=== PATIENT | female | born 1950 | race Caucasian/White ===

== ENCOUNTER 2016-10-08 11:18 | Emergency (ER) | payer MEDICARE, OTHER ==
[~2016-10-08] VITALS: Wt 89.1 kg
[~2016-10-08 11:18] MED LIST: ASPI-650 PO; Glucophage; JANUVIA; SIMVASTATIN; VIC PO; [UNRECOGNIZED DRUG - REMARK]
[2016-10-08] MEDS ORDERED: KETOROLAC 30 MG INJ IM STA (12:08)
[2016-10-08 12:41] LABS: ADD SCAN DIFF NO
[2016-10-08 12:48] LABS: BASOPHIL # 0.1 10^3/ul (0.0-0.1); BASOPHILS % 0.5 % (0.0-2.0); EOSINOPHILS # 0.1 10^3/ul (0.0-0.5); EOSINOPHILS % 0.6 % (0.0-7.0); HEMATOCRIT 42.1 % (37.0-47.0); LYMPHOCYTES # 2.4 10^3/ul (0.8-2.9); LYMPHOCYTES % 19.1 % (15.0-51.0); MEAN CORPUSCULAR HEMOGLOBIN 29.4 pg (29.0-33.0); MEAN CORPUSCULAR HGB CONC 33.3 g/dl (32.0-37.0); MEAN CORPUSCULAR VOLUME 88.4 fl (82.0-101.0); MEAN PLATELET VOLUME 9.3 fl (7.4-10.4); MONOCYTE # 1.2 10^3/ul (0.3-0.9); MONOCYTES % 9.2 % (0.0-11.0); NEUTROPHIL # 8.9 10^3/ul (1.6-7.5); NEUTROPHILS % 70.2 % (39.0-77.0); PLATELET COUNT 307 10^3/UL (140-415); RED BLOOD COUNT 4.76 10^6/ul (4.20-5.40); RED CELL DISTRIBUTION WIDTH 13.3 % (11.5-14.5); WHITE BLOOD COUNT 12.7 10^3/ul (4.8-10.8)
--- NOTE | 2016-10-08 12:54 | RADRPT ---
PROCEDURE: US Lower extremity Venous. CLINICAL INDICATION: Right leg pain TECHNIQUE: Multiple sonographic images of the right lower extremity deep venous system was obtaine d utilizing grayscale, color-flow, compressive sonography and doppler imaging with augmentation. Th e images were reviewed on a PACS workstation. COMPARISON: None. FINDINGS: There is normal compressibility and flow within the right common femoral, femoral, posterior tibial, peroneal and popliteal veins. RPTAT: AA IMPRESSION: No sonographic evidence for deep venous thrombosis. .Felix Stone MD, MD Date Time Electronically viewed and signed by .Felix Stone MD, MD on 10/08/2016 12:54 .S/
--- NOTE | 2016-10-08 13:03 | ERD ---
ER Documentation Chief Complaint Date/Time DATE: 10/08/16 TIME: 13:01 Chief Complaint r. knee pain, denies trauma HPI Patient is a 66-year-old female who presents to the ED with sudden onset of right knee pain 4 days. She states that she developed the knee pain without triggering factors or trauma or injury. She states that she went to her primary care who stated that she should come to the ER. She states that in the last 4 days the pain has gotten progressively worse and she has difficulty walking and bending her knee. She denies fever or chills. She denies pain above or below her knee joint. She denies chest pain, cough, shortness of breath or difficulty breathing. She denies history of knee pain or gout. She is not taking any medication for symptoms. No other complaints. ROS All systems reviewed and are negative except as per history of present illness. Medications Home Meds Active Scripts Acetaminophen* (Tylophen*) 500 Mg Capsule, 1 CAP PO Q6H Y for PAIN AND OR ELEVATED TEMP, #20 CAP Prov:FINN MATOS PA-C 10/08/16 Indomethacin* (Indocin*) 25 Mg Capsule, 25 MG PO Q8 for 30 Days, CAP Prov:FINN MATOS PA-C 10/08/16 Colchicine* (Colcrys*) 0.6 Mg Tablet, 0.6 MG PO BID for 2 Days, TAB Prov:FINN MATOS PA-C 10/08/16 Reported Medications [Other Meds Unknown] No Conflict Check 08/26/12 Aspirin (Aspirin) 81 Mg Tablet, 81 MG PO DAILY 08/26/12 [Simvastatin] No Conflict Check 08/26/12 [Januvia] No Conflict Check 08/26/12 Acetaminophen/Hydrocodone (Vicodin) 1 Tab Tab, 1 TAB PO PRN 08/26/12 [Glucophage] No Conflict Check 08/26/12 Allergies Allergies: Coded Allergies: No Known Allergy (Unverified , 08/26/12) PMhx/Soc History of Surgery: Yes (ABD SURGERY UNSURE OF PROCEDURE) Anesthesia Reaction: No Hx Neurological Disorder: No Hx Respiratory Disorders: No Hx Cardiac Disorders: Yes (HTN) Hx Psychiatric Problems: No Hx Miscellaneous Medical Probl: Yes (HTN, DM TYPE II) Hx Alcohol Use: No Hx Substance Use: No Hx Tobacco Use: No Smoking Status: Never smoker FmHx Family History: No coronary disease, No diabetes, No other Physical Exam Vitals Vital Signs Date Time Temp Pulse Resp B/P Pulse Ox O2 Delivery O2 Flow Rate FiO2 10/08/16 11:26 100.2 86 20 119/61 99 Physical Exam GENERAL: Well-developed, well-nourished female. Appears in no acute distress. HEAD: Normocephalic, atraumatic. EYES: Pupils are equally reactive bilaterally. EOMs grossly intact. No conjunctival erythema. ENT: Moist mucous membranes. No uvula deviation. No kissing tonsils. No exudates. NECK: Supple. No lymphadenopathy or thyromegaly. No meningismus. negative kernig. negative brudinski. LUNG: Clear to auscultation bilaterally. No rhonchi, wheezing, rales or coarse breath sounds. HEART: Regular rate and rhythm. No murmurs, rubs or gallops. Extremities: Equal pulses bilaterally. No peripheral clubbing, cyanosis or edema. No unilateral leg swelling. Warmth with no erythema to the right knee with tenderness to the anterior knee and medial aspect of knee. Difficult with bending. No pain above or below the knee. No drainage. No open wounds or laceration. No step-offs or deformities. Negative Homans sign. Pulses intact. NEUROLOGIC: Alert and oriented. Moving all four extremities. 5/5 strength in all extremities. Normal speech. unSteady gait. SKIN: Normal color. Warm and dry. No rashes or lesions. Capillary refill < 2 seconds Result Diagram: 10/08/16 1223 Results 24 hrs Laboratory Tests Test 10/08/16 12:23 White Blood Count 12.710^3/ul Red Blood Count 4.7610^6/ul Hemoglobin 14.0g/dl Hematocrit 42.1% Mean Corpuscular Volume 88.4fl Mean Corpuscular Hemoglobin 29.4pg Mean Corpuscular Hemoglobin Concent 33.3g/dl Red Cell Distribution Width 13.3% Platelet Count 73835^3/UL Mean Platelet Volume 9.3fl Neutrophils % 70.2% Lymphocytes % 19.1% Monocytes % 9.2% Eosinophils % 0.6% Basophils % 0.5% Nucleated Red Blood Cells % 0.0/100WBC Neutrophils # 8.910^3/ul Lymphocytes # 2.410^3/ul Monocytes # 1.210^3/ul Eosinophils # 0.110^3/ul Basophils # 0.110^3/ul Nucleated Red Blood Cells # 0.010^3/ul Erythrocyte Sedimentation Rate 38mm/Hr Uric Acid 10.5mg/dl C-Reactive Protein 3.3mg/dl Current Medications Medications (Trade) Dose Ordered Sig/Dariana Route PRN Reason Start Time Stop Time Status Last Admin Dose Admin Ketorolac Tromethamine (Toradol) 30 mg ONCE STAT IM 10/08/16 12:08 10/08/16 12:11 DC 10/08/16 12:35 Procedures/MDM ER COURSE: I kept the patient and/or family informed of laboratory and diagnostic imaging results throughout the emergency room course. IMAGING STUDIES [place] [address] Radiology Main Line: [phone] DIAGNOSTIC IMAGING REPORT Patient: ALEJANDRA SNYDER : 1950 Age: 66 Sex: F MR #: [id number] DOS: 10/08/16 1208 Ordering MD: FINN MATOS PA-C Location: [facility] Room/Bed: PROCEDURE: US Lower extremity Venous. CLINICAL INDICATION: Right leg pain TECHNIQUE: Multiple sonographic images of the right lower extremity deep venous system was obtained utilizing grayscale, color-flow, compressive sonography and doppler imaging with augmentation. The images were reviewed on a PACS workstation. COMPARISON: None. FINDINGS: There is normal compressibility and flow within the right common femoral, femoral, posterior tibial, peroneal and popliteal veins. RPTAT: AA IMPRESSION: No sonographic evidence for deep venous thrombosis. .Felix Stone MD, Date Time Electronically viewed and signed by .Felix Stone MD, on 10/08/2016 12: 54 .S/ CC: FINN MATOS PA-C [place] [address] Radiology Main Line: [phone] DIAGNOSTIC IMAGING REPORT Patient: ALEAJNDRA SNYDER : 1950 Age: 66 Sex: F [id number] DOS: 10/08/16 1208 Ordering MD: FINN MATOS PA-C Location: [facility] Room/Bed: PROCEDURE: Right knee radiographs. CLINICAL INDICATION: Right knee pain. TECHNIQUE: Three views. Weight bearing. Frontal, lateral, and patellar view. COMPARISON: No prior studies are available for comparison. FINDINGS: There is no fracture or dislocation. There is a joint effusion. There are degenerative changes with osteophytes arising from all 3 joint compartment margins. There is medial joint compartment narrowing. There is no lytic or blastic lesion. There is no radiopaque foreign body. IMPRESSION: 1. Joint effusion. 2. Moderate degenerative change. 3. Otherwise normal images of the right knee. RPTAT: QQ .Joseph Correa MD, MD Date Time Electronically viewed and signed by .Joseph Correa MD, MD on 10/08/2016 13:24 .R/ CC: FINN MATOS PA-C CBC 12.7, uric acid 10.5. CRP 3.3. ESR 38 MEDICAL DECISION MAKING: This is a 66-year-old female who presents with right knee pain. Vital signs were reviewed. Patient is afebrile. Patient is not hypoxic. I consulted with Dr. Flowers regarding this patient who came to examine patient at bedside. Patient has what is likely gout due to the increase in uric acid. I have low suspicion for septic joint however patient should have close follow-up and be monitored closely and to return in 12 hours for recheck. Or earlier for any worsening symptoms such as fever, increasing pain or redness. X-ray and ultrasound is read by radiologist unremarkable. Low suspicion for dislocation, fracture, septic joint, compartment syndrome, osteomyelitis, avascular necrosis , DVT, Achilles tendon rupture, cellulitis. At this time, unable to rule out any tendon and ligament injuries. No pain above or below the knee. DISCHARGE: At this time, patient is stable for discharge and outpatient management with no new complaints during the ER course. Patient was sent home with colchicine for 2 days and indomethacin, Tylenol for pain. I advised patient to return in 12- 24 hours for recheck and to have close monitoring. Her to return earlier for any worsening symptoms such as fever, chills, increase in redness or swelling.. Patient will be discharged home with instructions to recheck for new or worsening symptoms such as fever, nausea, weakness, LOC and to follow up with primary care in the next 1-2 days. Patient was advised to return to the ER for any new or worsening symptoms. Plan was discussed and patient and/or family understands and agrees. Home instructions were given. Departure Diagnosis: Primary Impression: Knee pain Laterality: right Chronicity: acute Qualified Code: M25.561 - Acute pain of right knee Condition: Stable FINN MATOS PA-C Oct 08, 2016 13:03
[2016-10-08 13:08] LABS: URIC ACID 10.5 mg/dl (3.1-7.9)
[2016-10-08 13:11] LABS: C-REACTIVE PROTEIN 3.3 mg/dl (0.0-0.9)
--- NOTE | 2016-10-08 13:24 | RADRPT ---
PROCEDURE: Right knee radiographs. CLINICAL INDICATION: Right knee pain. TECHNIQUE: Three views. Weight bearing. Frontal, lateral, and patellar view. COMPARISON: No prior studies are available for comparison. FINDINGS: There is no fracture or dislocation. There is a joint effusion. There are degenerative changes with osteophytes arising from all 3 joint compartment margins. There is medial joint compartment narrowing. There is no lytic or blastic lesion. There is no radiopaque foreign body. IMPRESSION: 1. Joint effusion. 2. Moderate degenerative change. 3. Otherwise normal images of the right knee. RPTAT: QQ .Joseph Correa MD, Date Time Electronically viewed and signed by .Joseph Correa MD, on 10/08/2016 13:24 .R/
[2016-10-08] MEDS ORDERED: COLC0.6T6 PO (14:32)
[2016-10-08] MEDS ORDERED: ACET500C5 PO (14:32)
[2016-10-08] MEDS ORDERED: INDO25CA25 PO (14:32)
== END 2016-10-08 15:04 | disposition home or self-care (01) ==
LOC: FTE 11:18
DX: M25.561 Pain in right knee (principal); I10 Essential (primary) hypertension; E11.9 Type 2 diabetes mellitus without complications; Z79.82 Long term (current) use of aspirin; Z79.84 Long term (current) use of oral hypoglycemic drugs
CPT/HCPCS: 29505; 73562; 84560; 85025; 85651; 86140; 93971; J1885; 96372

== ENCOUNTER 2019-01-09 19:37 | Observation (INO) | payer MEDICARE, OTHER ==
[~2019-01-09] VITALS: Ht 160 cm; Wt 88.9 kg
[~2019-01-09 19:37] MED LIST changes: +ACET500C5 PO; +COLC0.6T6 PO; +INDO25CA16 PO
[2019-01-09 19:40] VITALS: Ht 160 cm; Wt 88.9 kg
[2019-01-09] MEDS ORDERED: morphine 4 MG/ML VIAL IV STA (19:53)
[2019-01-09] MEDS ORDERED: ONDANSETRON 4 MG INJ IV STA (19:53)
[2019-01-09] MEDS ORDERED: CEFTRIAXONE 1 GM/50 ML (PMX) 50 ML IVPB ONE (21:00)
[2019-01-09] MEDS ORDERED: ASPIRIN 325 MG TAB PO ONE (21:00)
--- NOTE | 2019-01-09 21:21 | ERD ---
ER Documentation Chief Complaint Chief Complaint SOB, LEFT SIDE HEAD/ SHOULDER PAIN X'S 2 DAYS HPI Patient is a 68-year-old female with hypertension and diabetes who presents with chest pain and shortness of breath. She also complains of bilateral headache. Her symptoms started 2 days ago and have been worsening. She tried Tylenol and Motrin. She has no fevers. Upon review of old medical records this is the patient's sixth visit to the ER since 2005. She does have a primary doctor. ROS All systems reviewed and are negative except as per history of present illness. Medications Home Meds Active Scripts Acetaminophen* (Tylophen*) 500 Mg Capsule, 1 CAP PO Q6H PRN for PAIN AND OR ELEVATED TEMP, #20 CAP Prov:FINN MATOS-C 10/08/16 Indomethacin* (Indocin*) 25 Mg Capsule, 25 MG PO Q8 for 30 Days, CAP Prov:FINN MATOS-C 10/08/16 Colchicine* (Colcrys*) 0.6 Mg Tablet, 0.6 MG PO BID for 2 Days, TAB Prov:FINN MATOS PA-C 10/08/16 Reported Medications [Other Meds Unknown] No Conflict Check 08/26/12 Aspirin (Aspirin) 81 Mg Tablet, 81 MG PO DAILY 08/26/12 [Simvastatin] No Conflict Check 08/26/12 [Januvia] No Conflict Check 08/26/12 Acetaminophen/Hydrocodone (Vicodin) 1 Tab Tab, 1 TAB PO PRN 08/26/12 [Glucophage] No Conflict Check 08/26/12 Allergies Allergies: Coded Allergies: No Known Allergy (Unverified , 08/26/12) PMhx/Soc History of Surgery: Yes (ABD SURGERY UNSURE OF PROCEDURE) Anesthesia Reaction: No Hx Neurological Disorder: No Hx Respiratory Disorders: No Hx Cardiac Disorders: Yes (HTN) Hx Psychiatric Problems: No Hx Miscellaneous Medical Probl: Yes (HTN, DM TYPE II) Hx Alcohol Use: No Hx Substance Use: No Hx Tobacco Use: No Smoking Status: Never smoker FmHx Family History: diabetes Physical Exam Vitals Vital Signs Date Temp Pulse Resp B/P (MAP) Pulse Ox O2 O2 Flow FiO2 Time Delivery Rate 01/09/19 80 18 161/91 100 Room Air 21:19 (114) 01/09/19 97.8 85 20 181/84 97 19:40 (116) Physical Exam Const: Moderate distress Head: Atraumatic Eyes: Normal Conjunctiva ENT: Normal External Ears, Nose and Mouth. Neck: Full range of motion. No meningismus. Resp: Clear to auscultation bilaterally Cardio: Regular rate and rhythm, no murmurs Abd: Soft, non tender, non distended. Normal bowel sounds Skin: No petechiae or rashes Back: No midline or flank tenderness Ext: No cyanosis, or edema Neur: Awake and alert Psych: Normal Mood and Affect Result Diagram: 01/09/19200401/09/192004 Results 24 hrs Laboratory Tests Test 01/09/19 19:50 01/09/19 20:05 Urine Color YELLOW Urine Clarity SLIGHTLY CLOUDY Urine pH 5.0 Urine Specific [place] 1.026 Urine Ketones TRACE mg/dL Urine Nitrite NEGATIVE mg/dL Urine Bilirubin NEGATIVE mg/dL Urine Urobilinogen NEGATIVE mg/dL Urine Leukocyte Esterase 2+ Aubrey/ul Urine Microscopic RBC 9 /HPF Urine Microscopic WBC 62 /HPF Urine Squamous Epithelial Cells FEW /HPF Urine Mucus FEW /HPF Urine Hemoglobin 2+ mg/dL Urine Glucose 1+ mg/dL Urine Total Protein 1+ mg/dl Urine Opiates Screen Positive Urine Barbiturates Negative Urine Amphetamines Screen Negative Urine Benzodiazepines Screen Negative Urine Cocaine Screen Negative Urine Cannabinoids Negative White Blood Count 15.3 10^3/ul Red Blood Count 4.77 10^6/ul Hemoglobin 13.6 g/dl Hematocrit 40.9 % Mean Corpuscular Volume 85.7 fl Mean Corpuscular Hemoglobin 28.5 pg Mean Corpuscular Hemoglobin Concent 33.3 g/dl Red Cell Distribution Width 12.8 % Platelet Count 506 10^3/UL Mean Platelet Volume 8.8 fl Immature Granulocytes % 0.700 % Neutrophils % 60.7 % Lymphocytes % 28.9 % Monocytes % 8.0 % Eosinophils % 1.0 % Basophils % 0.7 % Nucleated Red Blood Cells % 0.0 /100WBC Immature Granulocytes # 0.100 10^3/ul Neutrophils # 9.3 10^3/ul Lymphocytes # 4.4 10^3/ul Monocytes # 1.2 10^3/ul Eosinophils # 0.2 10^3/ul Basophils # 0.1 10^3/ul Nucleated Red Blood Cells # 0.0 10^3/ul Prothrombin Time 12.3 Sec Prothrombin Time Ratio 1.0 INR International Normalized Ratio 0.90 Activated Partial Thromboplast Time 30.0 Sec Sodium Level 140 mmol/L Potassium Level 4.6 mmol/L Chloride Level 106 mmol/L Carbon Dioxide Level 18 mmol/L Anion Gap 16 Blood Urea Nitrogen 14 mg/dl Creatinine 0.79 mg/dl Est Glomerular Filtrat Rate mL/min > 60 mL/min Glucose Level 217 mg/dl Hemoglobin A1c 5.6 % Calcium Level 11.1 mg/dl Troponin I < 0.012 ng/ml Triglycerides Level 191 mg/dl Cholesterol Level 129 mg/dl LDL Cholesterol, Calculated 47 mg/dl HDL Cholesterol 44 mg/dl Cholesterol/HDL Ratio 2.9 RATIO Current Medications Medications Dose Sig/Dariana Start Time Status Last (Trade) Ordered Route PRN Stop Time Admin Dose Reason Admin Morphine 4 mg ONCE STAT 01/09/19 DC 01/09/19 Sulfate IV 19:53 20:05 (morphine) 01/09/19 19:55 Ondansetron 4 mg ONCE STAT 01/09/19 DC 01/09/19 HCl (Zofran IV 19:53 20:05 Inj) 01/09/19 19:55 Ceftriaxone 50 ml @ ONCE ONCE 01/09/19 01/09/19 Sodium 100 mls/hr IVPB 21:00 21:13 01/09/19 21:29 Aspirin 325 mg ONCE ONCE 01/09/19 DC 01/09/19 (Aspirin) PO 21:00 21:13 01/09/19 21:01 Ondansetron 4 mg ER BRIDGE 01/09/19 HCl (Zofran PRN IV 21:30 Inj) NAUSEA/VOMITI 01/10/19 21:29 NG 650 mg ER BRIDGE 01/09/19 Acetaminophen PRN PO 21:30 (Tylenol .MILD PAIN 01/10/19 21:29 Tab) 1-3 OR TEMP Aspirin 81 mg DAILY PO 01/10/19 (Aspirin) 09:00 Sodium 1,000 ml @ [id number] IV 01/10/19 Chloride 70 mls/hr 00:00 IV Flush 3 ml PER 01/09/19 (NS 3 ml) PROTOCOL IV 21:30 Ondansetron 4 mg Q6H PRN 01/09/19 HCl (Zofran IV 21:30 Inj) NAUSEA/VOMITI NG 1 tab Q5M PRN 01/09/19 Nitroglycerin SL .CHEST 21:30 PAIN (Nitroglyceri n (Sl Tab) 0.4 Mg) 650 mg Q6H PRN 01/09/19 Acetaminophen PO .PAIN 1-3 21:30 (Tylenol OR TEMP Tab) Morphine 2 mg Q4H PRN 01/09/19 Sulfate IV .PAIN 21:30 (morphine) 7-10 Docusate 100 mg Q12H PRN 01/09/19 Sodium PO 21:30 (Colace) .CONSTIPATION Bisacodyl 5 mg DAILY PRN 01/09/19 (Dulcolax) PO 21:30 .CONSTIPATION Procedures/MDM CT brain read by radiology. Chest x-ray read by radiology. EKG read by me: Rate/Rhythm: Regular rate and rhythm at a normal rate Intervals: Normal Impression: No evidence of ischemia or arrhythmia Patient is a 60-year-old female presents with chest pain shortness of breath. Initial troponin is negative. I am concerned for possible acute coronary syndrome. I doubt pneumonia, pneumothorax, pulmonary embolism, or aortic dissection. CT head shows no sign of acute mass or bleed. The patient was gi gini morphine and Zofran as well as aspirin and nitroglycerin. She will be admitted to the care of Dr. Cope to a telemetry observation bed. She was found to have acute cystitis and subtraction was given and culture was done. Departure Diagnosis: Primary Impression: Chest pain Chest pain type: unspecified Qualified Codes: R07.9 - Chest pain, unspecified Additional Impressions: SOB (shortness of breath) Headache Headache type: unspecified Headache chronicity pattern: acute headache Intractability: not intractable Qualified Codes: R51 - Headache Cystitis Condition: RICHARD Adams MD Jan 09, 2019 21:21
[2019-01-09] MEDS ORDERED: NITROGLYCERIN (SL) 0.4 MG TAB SL PRN (21:30)
[2019-01-09] MEDS ORDERED: ACETAMINOPHEN 325 MG TAB PO PRN ×2 (21:30)
[2019-01-09] MEDS ORDERED: NACL 0.9% 3 ML SYG IV SCH (21:30)
[2019-01-09] MEDS ORDERED: ONDANSETRON 4 MG INJ IV PRN ×2 (21:30)
[2019-01-09] MEDS ORDERED: BISACODYL (EC) 5 MG TAB PO PRN (21:30)
[2019-01-09] MEDS ORDERED: DOCUSATE SODIUM 100 MG CAP PO PRN (21:30)
--- NOTE | 2019-01-09 22:46 | HP ---
Date/Time of Note Date/Time of Note DATE: 01/09/19 TIME: 22:45 Assessment/Plan VTE Prophylaxis SCD applied (from Nsg): Yes Pharmacological prophylaxis: NA/contraindicated Pharm contraindication: low risk/ambulating Lines/Catheters IV Catheter Type (from Nrsg): Saline Lock Assessment/Plan Hospital Course This is a 68-year-old female being admitted to the telemetry floor for: #1 chest pain: Rule out ACS versus secondary to uncontrolled hypertension. EKG appears nonischemic, will trend cardiac enzymes x3, the first that was negative. Will check an echocardiogram. Will check hemoglobin A1c, lipid panel, TSH. Will need to optimize patient's blood pressures. Will consult cardiology Dr godinez #2 uncontrolled hypertension: Patient did present with blood pressures in the 180s. This is likely contributing to patient's headache. Patient CT of the brain is negative. Patient is not able to provide dosages of her medications however there does not appear to be blood pressure medication listed. Will initiate the patient on lisinopril and Norvasc. PRN hydralazine. Titrate blood pressure medications as tolerated with a goal of systolic less than 130/80 given her history of diabetes. #3 headache: Likely secondary to uncontrolled hypertension. CT of the head is negative. Treat the blood pressure and pain meds. #4 diabetes mellitus: We will check hemoglobin A1c, insulin sliding scale, will hold oral meds at the current time and will need to confirm dosages as well. Check urine microalbumin. #5 metabolic acidosis: Possibly secondary to underlying urinary tract infection. Will treat urinary tract infection and monitor. If this persists we will obtain further work-up. She does not have any respiratory symptoms. #6 urinary tract infection: She was already given a dose of traction, will put her on ciprofloxacin twice daily for 3 days. #7 gout: Currently does not appear to have any gouty symptoms. #8 obesity: We will check hemoglobin A 1C, lipid panel, TSH, encourage diet and lifestyle modification. #9 hyperlipidemia: We will check lipid panel, continue statin confirm home dose. #10 DVT GI prophylaxis: SCDs, no GI prophylaxis indicated Further treatment strategy will be implemented as per the clinical course. Result Diagram: 01/09/19200401/09/192004 Results 24hrs Laboratory Tests Test 01/09/19 19:50 01/09/19 20:05 Urine Color YELLOW Urine Clarity SLIGHTLY CLOUDY A Urine pH 5.0 Urine Specific [place] 1.026 Urine Ketones TRACE A Urine Nitrite NEGATIVE Urine Bilirubin NEGATIVE Urine Urobilinogen NEGATIVE Urine Leukocyte Esterase 2+ H Urine Microscopic RBC 9 H Urine Microscopic WBC 62 H Urine Squamous Epithelial Cells FEW Urine Mucus FEW A Urine Hemoglobin 2+ H Urine Glucose 1+ H Urine Total Protein 1+ H Urine Opiates Screen Positive Urine Barbiturates Negative Urine Amphetamines Screen Negative Urine Benzodiazepines Screen Negative Urine Cocaine Screen Negative Urine Cannabinoids Negative White Blood Count 15.3 #H Red Blood Count 4.77 Hemoglobin 13.6 Hematocrit 40.9 Mean Corpuscular Volume 85.7 Mean Corpuscular Hemoglobin 28.5 L Mean Corpuscular Hemoglobin Concent 33.3 Red Cell Distribution Width 12.8 Platelet Count 506 #H Mean Platelet Volume 8.8 Immature Granulocytes % 0.700 H Neutrophils % 60.7 Lymphocytes % 28.9 Monocytes % 8.0 Eosinophils % 1.0 Basophils % 0.7 Nucleated Red Blood Cells % 0.0 Immature Granulocytes # 0.100 H Neutrophils # 9.3 H Lymphocytes # 4.4 H Monocytes # 1.2 H Eosinophils # 0.2 Basophils # 0.1 Nucleated Red Blood Cells # 0.0 Prothrombin Time 12.3 Prothrombin Time Ratio 1.0 INR International Normalized Ratio 0.90 Activated Partial Thromboplast Time 30.0 Sodium Level 140 Potassium Level 4.6 Chloride Level 106 Carbon Dioxide Level 18 L Anion Gap 16 H Blood Urea Nitrogen 14 Creatinine 0.79 Est Glomerular Filtrat Rate mL/min > 60 Glucose Level 217 Hemoglobin A1c 5.6 Calcium Level 11.1 H Troponin I < 0.012 Triglycerides Level 191 H Cholesterol Level 129 LDL Cholesterol, Calculated 47 HDL Cholesterol 44 Cholesterol/HDL Ratio 2.9 HPI/ROS Admit Date/Time Admit Date/Time Hx of Present Illness Complaint: Chest pain, shortness of breath, headache Patient is a poor historian. This is a 68-year-old female with a past medical history of hypertensionm, diabetes mellitus gout, hyperlipidemia who presented to the emergency department complaining of chest pain shortness of breath as well as right-sided headache. Patient complains of headache on the right side that is been going on for 2 days. She has tried Tylenol and Motrin but has not helped. She denies any fevers. She also reported chest pain along with shortness of breath. She does not seem to have medications for her blood pressure on her med recon. Allergies: NKDA Medications: Vicodin Glucophage Januvia Simvastatin Indomethacin Colchicine ROS Const: As per HPI Eyes : No pain discharge or redness or change in visual acuity ENT: No pain, sore throat, congestion, congestion, dysphagia or discharge Respiratory: No shortness of breath, cough, sputum, wheezing, or pleuritic pain Cardiovascular: As per HPI GI : no change in appetite, abdominal pain, nausea, vomiting, diarrhea, constipation, or change in the color his stool Genitourinary: No dysuria, hematuria, flank pain , discharge or CVA tenderness Musculoskeletal: No joint pain, back pain, neck pain, restricted range of motion in neck or joints Skin: No rash, bruising or hives Neuro: As per HPI Endocrine: No polyuria, polydipsia, temperature intolerance Psych: No hallucination, depression, anxiety or suicidal ideation PMH/Family/Social Past Medical History htn, gout, hyperlipidemia, diabetes Medications Current Medications Ondansetron HCl (Zofran Inj) 4 mg ER BRIDGE PRN IV NAUSEA/VOMITING; Start 01/09/19 at 21:30; Stop 01/10/19 at 21:29 Acetaminophen (Tylenol Tab) 650 mg ER BRIDGE PRN PO .MILD PAIN 1-3 OR TEMP; Start 01/09/19 at 21:30; Stop 01/10/19 at 21:29 Aspirin (Aspirin) 81 mg DAILY PO ; Start 01/10/19 at 09:00 Sodium Chloride 1,000 ml @ 70 mls/hr [id number] IV ; Start 01/10/19 at 00:00 IV Flush (NS 3 ml) 3 ml PER PROTOCOL IV ; Start 01/09/19 at 21:30 Ondansetron HCl (Zofran Inj) 4 mg Q6H PRN IV NAUSEA/VOMITING; Start 01/09/19 at 21:30 Nitroglycerin (Nitroglycerin (Sl Tab) 0.4 Mg) 1 tab Q5M PRN SL .CHEST PAIN; Start 01/09/19 at 21:30 Acetaminophen (Tylenol Tab) 650 mg Q6H PRN PO .PAIN 1-3 OR TEMP; Start 01/09/19 at 21:30 Morphine Sulfate (morphine) 2 mg Q4H PRN IV .PAIN 7-10; Start 01/09/19 at 21:30 Docusate Sodium (Colace) 100 mg Q12H PRN PO .CONSTIPATION; Start 01/09/19 at 21:30 Bisacodyl (Dulcolax) 5 mg DAILY PRN PO .CONSTIPATION; Start 01/09/19 at 21:30 Coded Allergies: No Known Allergy (Unverified , 08/26/12) Past Surgical History Abdominal hernia repair Family History Significant Family History: no pertinent family hx Social History Alcohol Use: none Smoking Status: Never smoker Drug Use: none Exam/Review of Systems Vital Signs Vitals Vital Signs Date Temp Pulse Resp B/P (MAP) Pulse Ox O2 O2 Flow FiO2 Time Delivery Rate 01/09/19 80 18 161/91 100 Room Air 21:19 (114) 01/09/19 97.8 19:40 Exam Exam General: Patient is currently lying in bed, she is complaining of a right-sided headache HEENT: Atraumatic, normocephalic. The pupils are equal, round and reactive. Extraocular motor are intact Neck: Supple with full range of motion. No rigidity or meningismus Chest: Nontender Lungs: Clear to auscultation bilaterally no crackles rales or wheezing Heart: Normal S1-S2, Regular rhythm and rate. Questionable murmur Abdomen: Soft , obese, nontender, nondistended , bowel sounds are present. No guarding no rebound tenderness , No masses or organomegaly. No costovertebral temporal angle mass Extremities: Normal to inspection, no edema no cyanosis Neurologic: Normal mental status, speech normal, cranial nerves II through XII are intact, motor and sensory are intact, Constitutional: alert Additional Comments EKG Rate/Rhythm: Regular rate and rhythm at a normal rate Intervals: Normal Impression: No evidence of ischemia or arrhythmia PROCEDURE: CT Brain without contrast. CLINICAL INDICATION: Bilateral headache for past 3 days worse today TECHNIQUE: A CT of the brain was performed on a [employer] 64-slice CT scanner utilizing axial imaging from the skull base through the vertex without IV contrast. Multiplanar reformatted images were made. Images were reviewed on a PACS workstation. The CTDIvol is 38.62 mGy and the DLP is 604.23 mGycm. One or more the following dose reduction techniques were utilized: Automated exposure control, adjustment of mA/ or kV according to patient's size, or use of iterative reconstruction technique. DICOM images are available for review. COMPARISON: None FINDINGS: There is no intracranial hemorrhage, mass effect, or midline shift. the ventricles and sulci are mildly prominent. The density of the brain is normal. There is good valenzuela-white matter differentiation throughout the cerebral hemispheres. The visualized brainstem and cerebellum are unremarkable. No extra-axial fluid collection is seen. The visualized paranasal sinuses and osseous structures are grossly unremarkable. IMPRESSION: No evidence of acute intracranial pathology. There is mild generalized volume loss. Findings were discussed with Dr. Torres of the emergency room department at 08:33 p.m. RPTAT:HAGL Brady Moya Physician Date Time Electronically viewed and signed by Physician Nelson on 01/09/2019 20:37 RL/ CC: RICHARD TORRES MD [id number] PROCEDURE: XR Chest. CLINICAL INDICATION: Chest pain TECHNIQUE: AP chest x-ray. COMPARISON: None. FINDINGS: The cardiomediastinal silhouette is unremarkable. focal linear density of the right mid lung is seen with elevation of the right hemidiaphragm. There is no pleural effusion or pneumothorax. multilevel spurs are seen along the thoracic spine. IMPRESSION: Focal right upper lobe atelectasis RPTAT:HAGL Brady Moya, Physician Date Time Electronically viewed and signed by Physician Nelson on 01/09/2019 20:37 RL/ CC: RICHARD TORRES MD [id number] SEBASTIAN BROWN Jan 09, 2019 22:45
[2019-01-10] VITALS (7 sets, daily range): BP systolic 132–189; BP diastolic 70–91; PULSE 79–101; RESP 17–18
[2019-01-10] MEDS ORDERED: SOD CHLORIDE 0.9% 1,000 ML IV SCH
[2019-01-10] MEDS: morphine 2 MG INJ IV PRN ×3 (02:51→18:13)
[2019-01-10] MEDS ORDERED: hydrALAzine 20 MG INJ IV PRN (05:00)
[2019-01-10] MEDS: INSULIN ASPART [NOVOLOG] 3 ML PEN SC SCH ×5 (05:00→21:45)
[2019-01-10] MEDS ORDERED: DEXTROSE 50% 50 ML SYRINGE IV PRN ×2 (05:30)
[2019-01-10] MEDS ORDERED: GLUCOSE GEL 15 GRAM TUBE BUCCAL PRN (05:30)
[2019-01-10] MEDS ORDERED: GLUCAGON 1 MG INJ IM PRN (05:30)
[2019-01-10] MEDS ORDERED: GLUCOSE GEL 15 GRAM TUBE PO PRN ×2 (05:30)
[2019-01-10] MEDS: AMLODIPINE 2.5 MG TAB PO SCH ×2 (06:14→08:37)
[2019-01-10] MEDS: LISINOPRIL 20 MG TAB PO SCH ×2 (06:14→08:36)
[2019-01-10] MEDS: CIPROFLOXACIN 250 MG TAB PO SCH ×2 (06:15→17:42)
[2019-01-10] MEDS ORDERED: HYDROCODONE/APAP (5/325) TAB PO ONE (06:30)
[2019-01-10] MEDS: ASPIRIN 81 MG TAB PO SCH (08:36)
--- NOTE | 2019-01-10 14:26 | PN ---
Date/Time of Note Date/Time of Note DATE: 01/10/19 TIME: 14:11 Assessment/Plan VTE Prophylaxis Risk score (from Ns)>0 risk: 2 SCD applied (from Ns): Yes Pharmacological prophylaxis: other Pharm contraindication: low risk/ambulating Lines/Catheters IV Catheter Type (from Nrsg): Saline Lock Assessment/Plan Assessment/Plan 1. Chest pain, negative troponin, follow up with Dr. Layne 2. DM, HbA1c 7.4, ISS, metformin, she was on januvia 100 mg daily at home 3. HTN, increase norvasc 4. Dyslipidemia, lipitor 5. Gout, stable 6. UTI, on cipro 7. Hypomagnesemia, Mg 8. Obesity, lose weight Result Diagram: 01/10/19 0649 01/10/19 0649 Results 24hrs Laboratory Tests Test 01/09/19 19:50 01/09/19 20:05 01/10/19 02:00 01/10/19 06:13 Urine Color YELLOW Urine Clarity SLIGHTLY CLOUDY A Urine pH 5.0 Urine Specific 1.026 [place] Urine Ketones TRACE A Urine Nitrite NEGATIVE Urine Bilirubin NEGATIVE Urine NEGATIVE Urobilinogen Urine Leukocyte 2+ H Esterase Urine Microscopic 9 H RBC Urine Microscopic 62 H WBC Urine Squamous FEW Epithelial Cells Urine Mucus FEW A Urine Hemoglobin 2+ H Urine Glucose 1+ H Urine Total 1+ H Protein Urine Opiates Positive Screen Urine Negative Barbiturates Urine Negative Amphetamines Screen Urine Negative Benzodiazepines Screen Urine Cocaine Negative Screen Urine Negative Cannabinoids White Blood Count 15.3 #H Red Blood Count 4.77 Hemoglobin 13.6 Hematocrit 40.9 Mean Corpuscular 85.7 Volume Mean Corpuscular 28.5 L Hemoglobin Mean Corpuscular 33.3 Hemoglobin Concen t Red Cell 12.8 Distribution Width Platelet Count 506 #H Mean Platelet 8.8 Volume Immature 0.700 H Granulocytes % Neutrophils % 60.7 Lymphocytes % 28.9 Monocytes % 8.0 Eosinophils % 1.0 Basophils % 0.7 Nucleated Red 0.0 Blood Cells % Immature 0.100 H Granulocytes # Neutrophils # 9.3 H Lymphocytes # 4.4 H Monocytes # 1.2 H Eosinophils # 0.2 Basophils # 0.1 Nucleated Red 0.0 Blood Cells # Prothrombin Time 12.3 Prothrombin Time 1.0 Ratio INR International 0.90 Normalized Ratio Activated 30.0 Partial Thrombopl ast Time Sodium Level 140 Potassium Level 4.6 Chloride Level 106 Carbon Dioxide 18 L Level Anion Gap 16 H Blood Urea 14 Nitrogen Creatinine 0.79 Est Glomerular > 60 Filtrat Rate mL/min Glucose Level 217 Hemoglobin A1c 5.6 Calcium Level 11.1 H Troponin I < 0.012 < 0.012 Triglycerides 191 H Level Cholesterol Level 129 LDL Cholesterol, 47 Calculated HDL Cholesterol 44 Cholesterol/HDL 2.9 Ratio Creatine Kinase 25 Creatine Kinase 1.2 Index Creatinine Kinase 0.29 MB (Mass) Bedside Glucose 191 Test 01/10/19 06:44 01/10/19 06:49 01/10/19 07:54 01/10/19 12:15 Creatine Kinase 24 Creatine Kinase 1.5 Index Creatinine Kinase 0.36 MB (Mass) Troponin I < 0.012 White Blood Count 13.0 H Red Blood Count 4.09 L Hemoglobin 11.7 L Hematocrit 34.9 L Mean Corpuscular 85.3 Volume Mean Corpuscular 28.6 L Hemoglobin Mean Corpuscular 33.5 Hemoglobin Concen t Red Cell 12.5 Distribution Width Platelet Count 372 # Mean Platelet 8.7 Volume Immature 0.600 H Granulocytes % Neutrophils % 72.2 Lymphocytes % 18.1 Monocytes % 7.8 Eosinophils % 0.7 Basophils % 0.6 Nucleated Red 0.0 Blood Cells % Immature 0.080 H Granulocytes # Neutrophils # 9.4 H Lymphocytes # 2.4 Monocytes # 1.0 H Eosinophils # 0.1 Basophils # 0.1 Nucleated Red 0.0 Blood Cells # Sodium Level 140 Potassium Level 4.7 Chloride Level 107 Carbon Dioxide 22 Level Anion Gap 11 Blood Urea 12 Nitrogen Creatinine 0.60 Est Glomerular > 60 Filtrat Rate mL/min Glucose Level 212 Hemoglobin A1c 7.4 H Calcium Level 10.2 Magnesium Level 1.2 L Total Bilirubin 0.5 Direct Bilirubin 0.00 Indirect 0.5 Bilirubin Aspartate Amino 18 Transf (AST/SGOT) Alanine 32 Aminotransferase (ALT/SGPT) Alkaline 56 Phosphatase Total Protein 6.5 Albumin 3.8 Globulin 2.70 Albumin/Globulin 1.40 Ratio Triglycerides 133 Level Cholesterol Level 108 LDL Cholesterol, 35 Calculated HDL Cholesterol 46 Cholesterol/HDL 2.3 Ratio Thyroid 1.590 Stimulating Hormone (TSH) Parathyroid 39.4 Hormone (Intact) Bedside Glucose 202 169 Subjective 24 Hr Interval Summary Free Text/Dictation no chest pain today Exam/Review of Systems Exam Vitals Vital Signs Date Temp Pulse Resp B/P (MAP) Pulse Ox O2 O2 Flow FiO2 Time Delivery Rate 01/10/19 97.7 79 18 179/76 96 11:16 (110) 01/10/19 Room Air 04:20 Intake and Output 01/09/19 01/09/19 01/10/19 1515:00 23:00 07:00 IntakeIntake Total 50 ml BalanceBalance 50 ml Constitutional: alert, oriented, well developed, obese Psych: no complaints, nl mood/affect Head: normocephalic, atraumatic Eyes: nl conjunctiva, EOMI, nl lids ENMT: nl external ears & nose, nl lips & teeth, nl nasal mucosa & septum Neck: supple, non-tender Respiratory: clear to auscultation, normal air movement; No congested cough, No crackles/rales, No diminished breath sounds, No intercostal retraction, No labored breathing, No respirations, No tactile fremitus, No wheezing, No other Cardiovascular: regular rate and rhythm, nl pulses; No bruits, No diastolic murmur, No edema, No gallop, No irregular rhythm, No jugular venous distention (JVD), No murmurs/extra sounds, No rub, No systolic murmur, No S3, No S4, No other Gastrointestinal: soft, nl liver, spleen, non-tender Musculoskeletal: nl extremities to inspection Extremities: normal pulses; No calf tenderness, No cyanosis, No clubbing, No edema, No pitting pedal edema, No palpable cord, No tenderness, No other Neurological: HANDYMAN II-XII intact, nl mental status, nl speech, nl strength Skin: nl turgor Results Results 24hrs Laboratory Tests Test 01/09/19 19:50 01/09/19 20:05 01/10/19 02:00 01/10/19 06:13 Urine Color YELLOW Urine Clarity SLIGHTLY CLOUDY A Urine pH 5.0 Urine Specific 1.026 [place] Urine Ketones TRACE A Urine Nitrite NEGATIVE Urine Bilirubin NEGATIVE Urine NEGATIVE Urobilinogen Urine Leukocyte 2+ H Esterase Urine Microscopic 9 H RBC Urine Microscopic 62 H WBC Urine Squamous FEW Epithelial Cells Urine Mucus FEW A Urine Hemoglobin 2+ H Urine Glucose 1+ H Urine Total 1+ H Protein Urine Opiates Positive Screen Urine Negative Barbiturates Urine Negative Amphetamines Screen Urine Negative Benzodiazepines Screen Urine Cocaine Negative Screen Urine Negative Cannabinoids White Blood Count 15.3 #H Red Blood Count 4.77 Hemoglobin 13.6 Hematocrit 40.9 Mean Corpuscular 85.7 Volume Mean Corpuscular 28.5 L Hemoglobin Mean Corpuscular 33.3 Hemoglobin Concen t Red Cell 12.8 Distribution Width Platelet Count 506 #H Mean Platelet 8.8 Volume Immature 0.700 H Granulocytes % Neutrophils % 60.7 Lymphocytes % 28.9 Monocytes % 8.0 Eosinophils % 1.0 Basophils % 0.7 Nucleated Red 0.0 Blood Cells % Immature 0.100 H Granulocytes # Neutrophils # 9.3 H Lymphocytes # 4.4 H Monocytes # 1.2 H Eosinophils # 0.2 Basophils # 0.1 Nucleated Red 0.0 Blood Cells # Prothrombin Time 12.3 Prothrombin Time 1.0 Ratio INR International 0.90 Normalized Ratio Activated 30.0 Partial Thrombopl ast Time Sodium Level 140 Potassium Level 4.6 Chloride Level 106 Carbon Dioxide 18 L Level Anion Gap 16 H Blood Urea 14 Nitrogen Creatinine 0.79 Est Glomerular > 60 Filtrat Rate mL/min Glucose Level 217 Hemoglobin A1c 5.6 Calcium Level 11.1 H Troponin I < 0.012 < 0.012 Triglycerides 191 H Level Cholesterol Level 129 LDL Cholesterol, 47 Calculated HDL Cholesterol 44 Cholesterol/HDL 2.9 Ratio Creatine Kinase 25 Creatine Kinase 1.2 Index Creatinine Kinase 0.29 MB (Mass) Bedside Glucose 191 Test 01/10/19 06:44 01/10/19 06:49 01/10/19 07:54 01/10/19 12:15 Creatine Kinase 24 Creatine Kinase 1.5 Index Creatinine Kinase 0.36 MB (Mass) Troponin I < 0.012 White Blood Count 13.0 H Red Blood Count 4.09 L Hemoglobin 11.7 L Hematocrit 34.9 L Mean Corpuscular 85.3 Volume Mean Corpuscular 28.6 L Hemoglobin Mean Corpuscular 33.5 Hemoglobin Concen t Red Cell 12.5 Distribution Width Platelet Count 372 # Mean Platelet 8.7 Volume Immature 0.600 H Granulocytes % Neutrophils % 72.2 Lymphocytes % 18.1 Monocytes % 7.8 Eosinophils % 0.7 Basophils % 0.6 Nucleated Red 0.0 Blood Cells % Immature 0.080 H Granulocytes # Neutrophils # 9.4 H Lymphocytes # 2.4 Monocytes # 1.0 H Eosinophils # 0.1 Basophils # 0.1 Nucleated Red 0.0 Blood Cells # Sodium Level 140 Potassium Level 4.7 Chloride Level 107 Carbon Dioxide 22 Level Anion Gap 11 Blood Urea 12 Nitrogen Creatinine 0.60 Est Glomerular > 60 Filtrat Rate mL/min Glucose Level 212 Hemoglobin A1c 7.4 H Calcium Level 10.2 Magnesium Level 1.2 L Total Bilirubin 0.5 Direct Bilirubin 0.00 Indirect 0.5 Bilirubin Aspartate Amino 18 Transf (AST/SGOT) Alanine 32 Aminotransferase (ALT/SGPT) Alkaline 56 Phosphatase Total Protein 6.5 Albumin 3.8 Globulin 2.70 Albumin/Globulin 1.40 Ratio Triglycerides 133 Level Cholesterol Level 108 LDL Cholesterol, 35 Calculated HDL Cholesterol 46 Cholesterol/HDL 2.3 Ratio Thyroid 1.590 Stimulating Hormone (TSH) Parathyroid 39.4 Hormone (Intact) Bedside Glucose 202 169 Medications Medication Current Medications Aspirin (Aspirin) 81 mg DAILY PO Last administered on 01/10/19at 08:36; Admin D ose 81 MG; Start 01/10/19 at 09:00 Sodium Chloride 1,000 ml @ 70 mls/hr [id number] IV Last administered on 01/10/19at 01:58; Admin Dose 70 MLS/HR; Start 01/10/19 at 00:00 IV Flush (NS 3 ml) 3 ml PER PROTOCOL IV ; Start 01/09/19 at 21:30 Ondansetron HCl (Zofran Inj) 4 mg Q6H PRN IV NAUSEA/VOMITING; Start 01/09/19 at 21:30 Nitroglycerin (Nitroglycerin (Sl Tab) 0.4 Mg) 1 tab Q5M PRN SL .CHEST PAIN; Start 01/09/19 at 21:30 Acetaminophen (Tylenol Tab) 650 mg Q6H PRN PO .PAIN 1-3 OR TEMP; Start 01/09/19 at 21:30 Morphine Sulfate (morphine) 2 mg Q4H PRN IV .PAIN 7-10 Last administered on 01/10/19at 11:31; Admin Dose 2 MG; Start 01/09/19 at 21:30 Docusate Sodium (Colace) 100 mg Q12H PRN PO .CONSTIPATION; Start 01/09/19 at 21:30 Bisacodyl (Dulcolax) 5 mg DAILY PRN PO .CONSTIPATION; Start 01/09/19 at 21:30 Ciprofloxacin (Cipro) 250 mg BID@06,18 PO Last administered on 01/10/19at 06:15; Admin Dose 250 MG; Start 01/10/19 at 06:00; Stop 01/13/19 at 05:59 Lisinopril (Zestril) 20 mg DAILY PO Last administered on 01/10/19at 08:36; Admin Dose 20 MG; Start 01/10/19 at 05:00 Amlodipine Besylate (Norvasc) 2.5 mg DAILY PO Last administered on 01/10/19at 08:37; Admin Dose 2.5 MG; Start 01/10/19 at 05:00 Hydralazine HCl (Apresoline) 10 mg Q4H PRN IV ELEVATED BLOOD PRESSURE; Start 01/10/19 at 05:00 Diagnostic Test (Pha) (Accu-Chek) 1 ea 02 XX ; Start 01/11/19 at 02:00 Insulin Aspart (Novolog Insulin Pen) NOVOLOG *MILD* ALGORI... Q4 SC Last administered on 01/10/19at 12:22; Admin Dose 1 UNIT; Start 01/10/19 at 05:00 Miscellaneous Information 1 ea NOTE XX ; Start 01/10/19 at 05:30 Glucose (Glutose) 15 gm Q15M PRN PO DECREASED GLUCOSE; Start 01/10/19 at 05:30 Glucose (Glutose) 22.5 gm Q15M PRN PO DECREASED GLUCOSE; Start 01/10/19 at 05:30 Dextrose (D50w Syringe) 25 ml Q15M PRN IV DECREASED GLUCOSE; Start 01/10/19 at 05:30 Dextrose (D50w Syringe) 50 ml Q15M PRN IV DECREASED GLUCOSE; Start 01/10/19 at 05:30 Glucagon (Glucagen) 1 mg Q15M PRN IM DECREASED GLUCOSE; Start 01/10/19 at 05:30 Glucose (Glutose) 15 gm Q15M PRN BUCCAL DECREASED GLUCOSE; Start 01/10/19 at 05:30 ZEV SORTO MD Jan 10, 2019 14:23
--- NOTE | 2019-01-10 17:33 | CONS ---
Assessment/Plan Assessment/Plan Hospital Course (Demo Recall) 1. Chest pain appears to be atypical but given her multiple risk factors we will schedule for less stress test once blood pressure is better controlled to rule out any significant ischemia 2. Hypertension poorly controlled. Patient said at home she takes benazepril and metoprolol. Lisinopril and Norvasc was added. I will also change her metoprolol to carvedilol and continue with the Norvasc and lisinopril for now 3. Diabetes: On insulin for now 4. Dyslipidemia on a statin. Check lipid panels 5. Headache: We will defer to primary team Thank you for this referral. We will continue follow-up with you ARTEM FONSECA MD [facility] Consultation Date/Type/Reason Admit Date/Time Date of Consultation: Jan 10, 2019 Type of Consult Cardiology Reason for Consultation cp Requesting Provider: SEBASTIAN BROWN Date/Time of Note DATE: 01/10/19 TIME: 17:23 Hx of Present Illness Interventional cardiology consultation note Chief complaint: Headache Reason for consult: Chest pain History of present illness: Thank you for this referral. History was informed the patient was a poor historian discussion with the staff and physicians review of the chart. This is a pleasant 68-year-old [place] female with history of diabetes hypertension dyslipidemia who presented emergency room mostly with complaint of severe headache. Chest was noted to be severely hypertensive blood pressures been around 180s. He denies any left-sided chest pain or pressure to me now but however says she has occasional chest pain last week was a few days ago in fact. Pain is moderate to moderate in the chest and nonexertional. Sharp. Left- sided. She continues to have diffuse headache though. She is severe now She also complains of foot pain Allergies: No known drug allergies Medications were reviewed as per medical reconciliation sheet Family history: No early coronary artery disease Social history: Non-smoker. Past medical history: Diabetes hypertension dyslipidemia obesity gout Review of system: Patient denies all others except for above-mentioned Past Medical History Home Meds Active Scripts Acetaminophen* (Tylophen*) 500 Mg Capsule, 1 CAP PO Q6H PRN for PAIN AND OR ELEVATED TEMP, #20 CAP Prov:FINN MATOS PA-C 10/08/16 Indomethacin* (Indocin*) 25 Mg Capsule, 25 MG PO Q8 for 30 Days, CAP Prov:SHOOSHTARIAN,TANNAZ PA-C 10/08/16 Colchicine* (Colcrys*) 0.6 Mg Tablet, 0.6 MG PO BID for 2 Days, TAB Prov:FINN MATOS PA-C 10/08/16 Reported Medications [Other Meds Unknown] No Conflict Check 08/26/12 Aspirin (Aspirin) 81 Mg Tablet, 81 MG PO DAILY 08/26/12 [Simvastatin] No Conflict Check 08/26/12 [Januvia] No Conflict Check 08/26/12 Acetaminophen/Hydrocodone (Vicodin) 1 Tab Tab, 1 TAB PO PRN 08/26/12 [Glucophage] No Conflict Check 08/26/12 Medications Current Medications Aspirin (Aspirin) 81 mg DAILY PO Last administered on 01/10/19at 08:36; Admin Dose 81 MG; Start 01/10/19 at 09:00 IV Flush (NS 3 ml) 3 ml PER PROTOCOL IV ; Start 01/09/19 at 21:30 Ondansetron HCl (Zofran Inj) 4 mg Q6H PRN IV NAUSEA/VOMITING; Start 01/09/19 at 21:30 Nitroglycerin (Nitroglycerin (Sl Tab) 0.4 Mg) 1 tab Q5M PRN SL .CHEST PAIN; Start 01/09/19 at 21:30 Acetaminophen (Tylenol Tab) 650 mg Q6H PRN PO .PAIN 1-3 OR TEMP; Start 01/09/19 at 21:30 Morphine Sulfate (morphine) 2 mg Q4H PRN IV .PAIN 7-10 Last administered on 01/10/19at 11:31; Admin Dose 2 MG; Start 01/09/19 at 21:30 Docusate Sodium (Colace) 100 mg Q12H PRN PO .CONSTIPATION; Start 01/09/19 at 21:30 Bisacodyl (Dulcolax) 5 mg DAILY PRN PO .CONSTIPATION; Start 01/09/19 at 21:30 Ciprofloxacin (Cipro) 250 mg BID@,18 PO Last administered on 01/10/19at 06:15; Admin Dose 250 MG; Start 01/10/19 at 06:00; Stop 01/13/19 at 05:59 Lisinopril (Zestril) 20 mg DAILY PO Last administered on 01/10/19at 08:36; Admin Dose 20 MG; Start 01/10/19 at 05:00 Hydralazine HCl (Apresoline) 10 mg Q4H PRN IV ELEVATED BLOOD PRESSURE; Start 01/10/19 at 05:00 Diagnostic Test (Pha) (Accu-Chek) 1 ea 02 XX ; Start 01/11/19 at 02:00 Insulin Aspart (Novolog Insulin Pen) NOVOLOG *MILD* ALGORI... Q4 SC Last administered on 01/10/19at 12:22; Admin Dose 1 UNIT; Start 01/10/19 at 05:00 Miscellaneous Information 1 ea NOTE XX ; Start 01/10/19 at 05:30 Glucose (Glutose) 15 gm Q15M PRN PO DECREASED GLUCOSE; Start 01/10/19 at 05:30 Glucose (Glutose) 22.5 gm Q15M PRN PO DECREASED GLUCOSE; Start 01/10/19 at 05:30 Dextrose (D50w Syringe) 25 ml Q15M PRN IV DECREASED GLUCOSE; Start 01/10/19 at 05:30 Dextrose (D50w Syringe) 50 ml Q15M PRN IV DECREASED GLUCOSE; Start 01/10/19 at 05:30 Glucagon (Glucagen) 1 mg Q15M PRN IM DECREASED GLUCOSE; Start 01/10/19 at 05:30 Glucose (Glutose) 15 gm Q15M PRN BUCCAL DECREASED GLUCOSE; Start 01/10/19 at 05:30 Amlodipine Besylate (Norvasc) 10 mg DAILY PO ; Start 01/11/19 at 09:00 Atorvastatin Calcium (Lipitor) 10 mg HS PO ; Start 01/10/19 at 21:00 Metformin HCl (Glucophage) 1,000 mg BID WITH MEALS PO ; Start 01/10/19 at 17:55 Allergies: Coded Allergies: No Known Allergy (Unverified , 08/26/12) Social History Alcohol Use: none Smoking Status: Never smoker Drug Use: none Exam/Review of Systems Vital Signs Vitals Vital Signs Date Temp Pulse Resp B/P (MAP) Pulse Ox O2 O2 Flow FiO2 Time Delivery Rate 01/10/19 97.9 91 17 174/90 97 15:21 (118) 01/10/19 Room Air 04:20 Intake and Output 01/09/19 01/09/19 01/10/19 1515:00 23:00 07:00 IntakeIntake Total 50 ml BalanceBalance 50 ml Exam Exam General: Obese female in no acute distress HEENT: NC/AT. pupils are equal. round. NECK: NO JVD. no stridor. CV: RRR. systolic murmur; no gallop or rubs. PULM: no wheezing or rhonchi. GI: SOFT, NT, ND, no rebound or guarding Extremity: trace B/L LE edema. no clubbing. neuro: awake and alert, OX3. Psych: calm and pleasant rectal: deferred EKG was personally showed normal sinus rhythm with poor R wave progression Head CT done in the emergency room shows: No evidence of acute intracranial pathology. There is mild generalized volume loss. Chest x-ray showed: Focal right upper lobe atelectasis Labs Result Diagram: 01/10/19 0649 01/10/19 0649 Results 24hrs Laboratory Tests Test 01/09/19 19:50 01/09/19 20:05 01/10/19 02:00 01/10/19 06:13 Urine Color YELLOW Urine Clarity SLIGHTLY CLOUDY A Urine pH 5.0 Urine Specific 1.026 [place] Urine Ketones TRACE A Urine Nitrite NEGATIVE Urine Bilirubin NEGATIVE Urine NEGATIVE Urobilinogen Urine Leukocyte 2+ H Esterase Urine Microscopic 9 H RBC Urine Microscopic 62 H WBC Urine Squamous FEW Epithelial Cells Urine Mucus FEW A Urine Hemoglobin 2+ H Urine Glucose 1+ H Urine Total 1+ H Protein Urine Opiates Positive Screen Urine Negative Barbiturates Urine Negative Amphetamines Screen Urine Negative Benzodiazepines Screen Urine Cocaine Negative Screen Urine Negative Cannabinoids White Blood Count 15.3 #H Red Blood Count 4.77 Hemoglobin 13.6 Hematocrit 40.9 Mean Corpuscular 85.7 Volume Mean Corpuscular 28.5 L Hemoglobin Mean Corpuscular 33.3 Hemoglobin Concen t Red Cell 12.8 Distribution Width Platelet Count 506 #H Mean Platelet 8.8 Volume Immature 0.700 H Granulocytes % Neutrophils % 60.7 Lymphocytes % 28.9 Monocytes % 8.0 Eosinophils % 1.0 Basophils % 0.7 Nucleated Red 0.0 Blood Cells % Immature 0.100 H Granulocytes # Neutrophils # 9.3 H Lymphocytes # 4.4 H Monocytes # 1.2 H Eosinophils # 0.2 Basophils # 0.1 Nucleated Red 0.0 Blood Cells # Prothrombin Time 12.3 Prothrombin Time 1.0 Ratio INR International 0.90 Normalized Ratio Activated 30.0 Partial Thrombopl ast Time Sodium Level 140 Potassium Level 4.6 Chloride Level 106 Carbon Dioxide 18 L Level Anion Gap 16 H Blood Urea 14 Nitrogen Creatinine 0.79 Est Glomerular > 60 Filtrat Rate mL/min Glucose Level 217 Hemoglobin A1c 5.6 Calcium Level 11.1 H Troponin I < 0.012 < 0.012 Triglycerides 191 H Level Cholesterol Level 129 LDL Cholesterol, 47 Calculated HDL Cholesterol 44 Cholesterol/HDL 2.9 Ratio Creatine Kinase 25 Creatine Kinase 1.2 Index Creatinine Kinase 0.29 MB (Mass) Bedside Glucose 191 Test 01/10/19 06:44 01/10/19 06:49 01/10/19 07:54 01/10/19 12:15 Creatine Kinase 24 Creatine Kinase 1.5 Index Creatinine Kinase 0.36 MB (Mass) Troponin I < 0.012 White Blood Count 13.0 H Red Blood Count 4.09 L Hemoglobin 11.7 L Hematocrit 34.9 L Mean Corpuscular 85.3 Volume Mean Corpuscular 28.6 L Hemoglobin Mean Corpuscular 33.5 Hemoglobin Concen t Red Cell 12.5 Distribution Width Platelet Count 372 # Mean Platelet 8.7 Volume Immature 0.600 H Granulocytes % Neutrophils % 72.2 Lymphocytes % 18.1 Monocytes % 7.8 Eosinophils % 0.7 Basophils % 0.6 Nucleated Red 0.0 Blood Cells % Immature 0.080 H Granulocytes # Neutrophils # 9.4 H Lymphocytes # 2.4 Monocytes # 1.0 H Eosinophils # 0.1 Basophils # 0.1 Nucleated Red 0.0 Blood Cells # Sodium Level 140 Potassium Level 4.7 Chloride Level 107 Carbon Dioxide 22 Level Anion Gap 11 Blood Urea 12 Nitrogen Creatinine 0.60 Est Glomerular > 60 Filtrat Rate mL/min Glucose Level 212 Hemoglobin A1c 7.4 H Calcium Level 10.2 Magnesium Level 1.2 L Total Bilirubin 0.5 Direct Bilirubin 0.00 Indirect 0.5 Bilirubin Aspartate Amino 18 Transf (AST/SGOT) Alanine 32 Aminotransferase (ALT/SGPT) Alkaline 56 Phosphatase Total Protein 6.5 Albumin 3.8 Globulin 2.70 Albumin/Globulin 1.40 Ratio Triglycerides 133 Level Cholesterol Level 108 LDL Cholesterol, 35 Calculated HDL Cholesterol 46 Cholesterol/HDL 2.3 Ratio Thyroid 1.590 Stimulating Hormone (TSH) Parathyroid 39.4 Hormone (Intact) Bedside Glucose 202 169 Medications Medications Current Medications Aspirin (Aspirin) 81 mg DAILY PO Last administered on 01/10/19at 08:36; Admin Dose 81 MG; Start 01/10/19 at 09:00 IV Flush (NS 3 ml) 3 ml PER PROTOCOL IV ; Start 01/09/19 at 21:30 Ondansetron HCl (Zofran Inj) 4 mg Q6H PRN IV NAUSEA/VOMITING; Start 01/09/19 at 21:30 Nitroglycerin (Nitroglycerin (Sl Tab) 0.4 Mg) 1 tab Q5M PRN SL .CHEST PAIN; Start 01/09/19 at 21:30 Acetaminophen (Tylenol Tab) 650 mg Q6H PRN PO .PAIN 1-3 OR TEMP; Start 01/09/19 at 21:30 Morphine Sulfate (morphine) 2 mg Q4H PRN IV .PAIN 7-10 Last administered on 01/10/19at 11:31; Admin Dose 2 MG; Start 01/09/19 at 21:30 Docusate Sodium (Colace) 100 mg Q12H PRN PO .CONSTIPATION; Start 01/09/19 at 21:30 Bisacodyl (Dulcolax) 5 mg DAILY PRN PO .CONSTIPATION; Start 01/09/19 at 21:30 Ciprofloxacin (Cipro) 250 mg BID@,18 PO Last administered on 01/10/19at 06:15; Admin Dose 250 MG; Start 01/10/19 at 06:00; Stop 01/13/19 at 05:59 Lisinopril (Zestril) 20 mg DAILY PO Last administered on 01/10/19at 08:36; Admin Dose 20 MG; Start 01/10/19 at 05:00 Hydralazine HCl (Apresoline) 10 mg Q4H PRN IV ELEVATED BLOOD PRESSURE; Start 01/10/19 at 05:00 Diagnostic Test (Pha) (Accu-Chek) 1 ea 02 XX ; Start 01/11/19 at 02:00 Insulin Aspart (Novolog Insulin Pen) NOVOLOG *MILD* ALGORI... Q4 SC Last administered on 01/10/19at 12:22; Admin Dose 1 UNIT; Start 01/10/19 at 05:00 Miscellaneous Information 1 ea NOTE XX ; Start 01/10/19 at 05:30 Glucose (Glutose) 15 gm Q15M PRN PO DECREASED GLUCOSE; Start 01/10/19 at 05:30 Glucose (Glutose) 22.5 gm Q15M PRN PO DECREASED GLUCOSE; Start 01/10/19 at 05:30 Dextrose (D50w Syringe) 25 ml Q15M PRN IV DECREASED GLUCOSE; Start 01/10/19 at 05:30 Dextrose (D50w Syringe) 50 ml Q15M PRN IV DECREASED GLUCOSE; Start 01/10/19 at 05:30 Glucagon (Glucagen) 1 mg Q15M PRN IM DECREASED GLUCOSE; Start 01/10/19 at 05:30 Glucose (Glutose) 15 gm Q15M PRN BUCCAL DECREASED GLUCOSE; Start 01/10/19 at 05:30 Amlodipine Besylate (Norvasc) 10 mg DAILY PO ; Start 01/11/19 at 09:00 Atorvastatin Calcium (Lipitor) 10 mg HS PO ; Start 01/10/19 at 21:00 Metformin HCl (Glucophage) 1,000 mg BID WITH MEALS PO ; Start 01/10/19 at 17:55 ARTEM FONSECA MD Jan 10, 2019 17:33
[2019-01-10] MEDS: metFORMIN 500 MG TAB PO SCH (17:42)
[2019-01-10] MEDS ORDERED: MAGNESIUM SULFATE 3 GM in DEXTROSE 5% 100 ML IVPB ONE (18:30)
--- NOTE | 2019-01-10 18:43 | RADRPT ---
Echocardiogram Report Patient Name: Delvis SNYDERnt ID: [id number] : 1950 (68y 10m)Study Date: 01/10/2019 7:35:22 AM Gender: FAccession #: [id number] Tech: [facility]Kassy [facility]NOR[facility] Ref.Physician: SEBASTIAN BROWN Height(Cm): BSA: Weight(Kg): Quality: AdequateOrder Physician: SEBASTIAN BROWN Account #: Procedures: Echocardiographic Report: Transthoracic echocardiogram with complete 2D, M-Mode, and doppler examination. Indications: Chest Pain. Measurements: 2D/M Mode Doppler Measurement Value Normal Range Measurement Value Normal Range LVIDd 2D 3.5 [ 3.8 - 5.2 ] cm AV Peak Santana 1.3 [ 100.0 - 170.0 ] cm/sec LVIDs 2D 2.0 [ 2.2 - 3.5 ] cm AV Peak PG 6.0 [ 2.0 - 9.0 ] mmHg LVPWd 2D 1.1 [ 0.6 - 0.9 ] cm LVOT Peak Santana 0.9 [ 70.0 - 110.0 ] cm/sec IVSd 2D 1.1 [ 0.6 - 0.9 ] cm LVOT Peak PG 3.0 [ 2.0 - 6.0 ] mmHg AoR Diam 2D 2.5 [ 2.3 - 3.1 ] cm MV E Peak Santana 0.7 [ 60.0 - 130.0 ] cm/sec EDV 2D 49.1 [ 46.0 - 106.0 ] ml MV A Peak Santana 1.0 [ 100.0 - 120.0 ] cm/sec ESV 2D 13.2 [ 14.0 - 42.0 ] ml MV E/A 0.7 [ 0.8 - 1.5 ] ratio EF 2D 73.1 [ 54.0 - 74.0 ] percent MV Decel Time 155 [ 104 - 258 ] msec LA Dimen 2D 2.9 [ 2.7 - 3.8 ] cm Lat E` Santana 0.1 [ 10.0 - 15.0 ] cm/sec Lateral E/E` 11.2 [ 1.0 - 2.0 ] ratio Med E` Santana 0.0 cm/sec MV E/A 0.7 [ 0.8 - 1.5 ] ratio TR Peak Santana 2.2 [ 100.0 - 280.0 ] cm/sec TR Peak PG 19.0 mmHg RVSP 29.0 [ 10.0 - 36.0 ] mmHg RA Pressure 10.0 mmHg Findings: Left Ventricle: Normal left ventricular systolic function. Normal left ventricular cavity size. Mild concentric left ventricular hypertrophy. Ejection fraction is visually estimated at 70 %. Tissue Doppler/Mitral Doppler indices are consistent with impaired relaxation (Stage I diastolic dysfunction). Right Ventricle: Normal right ventricular size. Normal right ventricular systolic function. Left Atrium: The left atrium is normal in size. Right Atrium: The right atrium is normal in size. Mitral Valve: Normal appearance and function of the mitral valve with trace physiologic regurgitation. Aortic Valve: Normal appearance of the aortic valve. No significant aortic stenosis or insufficiency. Tricuspid Valve: Normal appearance of the tricuspid valve. The estimated Peak RVSP is 29 mmHg. There is trace tricuspid regurgitation. Pulmonic Valve: Normal pulmonic valve appearance. Pericardium: Normal pericardium with no significant pericardial effusion. Aorta: Normal aortic root. IVC: Normal size and normal respiratory collapse consistent with normal right atrial pressure. Conclusions: Normal left ventricular systolic function. Normal left ventricular cavity size. Mild concentric left ventricular hypertrophy. Ejection fraction is visually estimated at 70 %. Tissue Doppler/Mitral Doppler indices are consistent with impaired relaxation (Stage I diastolic dysfunction). The left atrium is normal in size. Normal appearance and function of the mitral valve with trace physiologic regurgitation. Normal appearance of the aortic valve. No significant aortic stenosis or insufficiency. Normal appearance of the tricuspid valve. The estimated Peak RVSP is 29 mmHg. There is trace tricuspid regurgitation. Electronically Signed By: Reji Layne 2019-01-10 18:43:17 PDT
[2019-01-10] MEDS ORDERED: ATORVASTATIN 10 MG TAB PO SCH (21:00)
[2019-01-10] MEDS ORDERED: ZOLPIDEM 5 MG TAB PO PRN (23:20)
[2019-01-11] MEDS ORDERED: ACCU-CHEK XX SCH (02:00)
[2019-01-11 03:56] VITALS: BP 147/94; PULSE 87; RESP 20
[2019-01-11] MEDS: CIPROFLOXACIN 250 MG TAB PO SCH (06:34)
[2019-01-11] MEDS ORDERED: INSULIN ASPART [NOVOLOG] 3 ML PEN SC SCH (07:25)
[2019-01-11] MEDS: metFORMIN 500 MG TAB PO SCH ×2 (07:30→11:39)
[2019-01-11 07:40] VITALS: BP 160/74; PULSE 90; RESP 18
[2019-01-11] MEDS: Insulin NOVOLOG SS MILD Algorithm (SS with meals and bedtime) SC SCH ×2 (07:43→11:37)
[2019-01-11] MEDS: LISINOPRIL 20 MG TAB PO SCH (07:47)
--- NOTE | 2019-01-11 08:01 | CONS ---
Consult Date/Type/Reason Admit Date/Time Jan 09, 2019 at 21:03 Initial Consult Date 01/10/19 Type of Consultation: cv Requesting Provider: SEBASTIAN BROWN Date/Time of Note DATE: 01/11/19 TIME: 07:59 Subjective Cardiology follow-up progress note Subjective: Discussed with staff telemetry was reviewed patient remains sinus rhythm. Patient denies any left-sided chest pain or pressure to me denies any PND orthopnea to me She complains of severe right foot and right shoulder pain now Objective: General: Obese female in no acute distress HEENT: NC/AT. pupils are equal. round. NECK: NO JVD. no stridor. CV: RRR. systolic murmur; no gallop or rubs. PULM: no wheezing or rhonchi. GI: SOFT, NT, ND, no rebound or guarding Extremity: trace B/L LE edema. no clubbing. neuro: awake and alert, OX3. Psych: calm and pleasant rectal: deferred EKG was personally showed normal sinus rhythm with poor R wave progression Head CT done in the emergency room shows: No evidence of acute intracranial pathology. There is mild generalized volume loss. Chest x-ray showed: Focal right upper lobe atelectasis Echocardiogram was personally reviewed which shows: Normal left ventricular systolic function. Normal left ventricular cavity size. Mild concentric left ventricular hypertrophy. Ejection fraction is visually estimated at 70 %. Tissue Doppler/Mitral Doppler indices are consistent with impaired relaxation (Stage I diastolic dysfunction). The left atrium is normal in size. Normal appearance and function of the mitral valve with trace physiologic regurgitation. Normal appearance of the aortic valve. No significant aortic stenosis or insufficiency. Normal appearance of the tricuspid valve. The estimated Peak RVSP is 29 mmHg. There is trace tricuspid regurgitation. Objective Vitals Vital Signs Date Temp Pulse Resp B/P (MAP) Pulse Ox O2 O2 Flow FiO2 Time Delivery Rate 01/11/19 98.2 90 18 160/74 98 Room Air 07:40 (102) Intake and Output 01/10/19 01/10/19 01/11/19 1515:00 23:00 07:00 IntakeIntake Total 350 ml 350 ml 400 ml BalanceBalance 350 ml 350 ml 400 ml Results/Medications Result Diagram: 01/10/19 0649 01/11/19 0627 Results 24 hrs Laboratory Tests Test 01/10/19 12:15 01/10/19 17:39 01/10/19 21:33 01/11/19 06:27 Bedside Glucose 169 298 H 221 H Sodium Level 138 Potassium Level 4.0 Chloride Level 105 Carbon Dioxide Level 23 Anion Gap 10 Blood Urea Nitrogen 10 Creatinine 0.60 Est Glomerular > 60 Filtrat Rate mL/min Glucose Level 269 H Calcium Level 10.4 H Magnesium Level 1.6 L Total Bilirubin 0.5 Direct Bilirubin 0.00 Indirect Bilirubin 0.5 Aspartate Amino 19 Transf (AST/SGOT) Alanine 28 Aminotransferase (AL T/SGPT) Alkaline Phosphatase 58 Total Protein 6.9 Albumin 3.7 Globulin 3.20 Albumin/Globulin 1.15 Ratio Triglycerides Level 82 Cholesterol Level 98 L LDL Cholesterol, 42 Calculated HDL Cholesterol 40 Cholesterol/HDL 2.4 Ratio Test 01/11/19 07:32 Bedside Glucose 258 H Home Meds Active Scripts Acetaminophen* (Tylophen*) 500 Mg Capsule, 1 CAP PO Q6H PRN for PAIN AND OR ELEVATED TEMP, #20 CAP Prov:FINN MATOS PA-C 10/08/16 Indomethacin* (Indocin*) 25 Mg Capsule, 25 MG PO Q8 for 30 Days, CAP Prov:FINN MATOS PA-C 10/08/16 Colchicine* (Colcrys*) 0.6 Mg Tablet, 0.6 MG PO BID for 2 Days, TAB Prov:FINN MATOS PA-C 10/08/16 Reported Medications [Other Meds Unknown] No Conflict Check 08/26/12 Aspirin (Aspirin) 81 Mg Tablet, 81 MG PO DAILY 08/26/12 [Simvastatin] No Conflict Check 08/26/12 [Januvia] No Conflict Check 08/26/12 Acetaminophen/Hydrocodone (Vicodin) 1 Tab Tab, 1 TAB PO PRN 08/26/12 [Glucophage] No Conflict Check 08/26/12 Medications Current Medications Aspirin (Aspirin) 81 mg DAILY PO Last administered on 01/10/19at 08:36; Admin Dose 81 MG; Start 01/10/19 at 09:00 IV Flush (NS 3 ml) 3 ml PER PROTOCOL IV ; Start 01/09/19 at 21:30 Ondansetron HCl (Zofran Inj) 4 mg Q6H PRN IV NAUSEA/VOMITING; Start 01/09/19 at 21:30 Nitroglycerin (Nitroglycerin (Sl Tab) 0.4 Mg) 1 tab Q5M PRN SL .CHEST PAIN; Start 01/09/19 at 21:30 Acetaminophen (Tylenol Tab) 650 mg Q6H PRN PO .PAIN 1-3 OR TEMP; Start 01/09/19 at 21:30 Morphine Sulfate (morphine) 2 mg Q4H PRN IV .PAIN 7-10 Last administered on 01/10/19at 18:13; Admin Dose 2 MG; Start 01/09/19 at 21:30 Docusate Sodium (Colace) 100 mg Q12H PRN PO .CONSTIPATION; Start 01/09/19 at 21:30 Bisacodyl (Dulcolax) 5 mg DAILY PRN PO .CONSTIPATION; Start 01/09/19 at 21:30 Ciprofloxacin (Cipro) 250 mg BID@,18 PO Last administered on 01/11/19at 06:34; Admin Dose 250 MG; Start 01/10/19 at 06:00; Stop 01/13/19 at 05:59 Lisinopril (Zestril) 20 mg DAILY PO Last administered on 01/11/19at 07:47; Admin Dose 20 MG; Start 01/10/19 at 05:00 Hydralazine HCl (Apresoline) 10 mg Q4H PRN IV ELEVATED BLOOD PRESSURE Last admi nistered on 01/10/19at 18:13; Admin Dose 10 MG; Start 01/10/19 at 05:00 Miscellaneous Information 1 ea NOTE XX ; Start 01/10/19 at 05:30 Glucose (Glutose) 15 gm Q15M PRN PO DECREASED GLUCOSE; Start 01/10/19 at 05:30 Glucose (Glutose) 22.5 gm Q15M PRN PO DECREASED GLUCOSE; Start 01/10/19 at 05:30 Dextrose (D50w Syringe) 25 ml Q15M PRN IV DECREASED GLUCOSE; Start 01/10/19 at 05:30 Dextrose (D50w Syringe) 50 ml Q15M PRN IV DECREASED GLUCOSE; Start 01/10/19 at 05:30 Glucagon (Glucagen) 1 mg Q15M PRN IM DECREASED GLUCOSE; Start 01/10/19 at 05:30 Glucose (Glutose) 15 gm Q15M PRN BUCCAL DECREASED GLUCOSE; Start 01/10/19 at 05:30 Amlodipine Besylate (Norvasc) 10 mg DAILY PO ; Start 01/11/19 at 09:00 Atorvastatin Calcium (Lipitor) 10 mg HS PO Last administered on 01/10/19at 21:19; Admin Dose 10 MG; Start 01/10/19 at 21:00 Metformin HCl (Glucophage) 1,000 mg BID WITH MEALS PO Last administered on 01/10/19at 17:42; Admin Dose 1,000 MG; Start 01/10/19 at 17:55 Carvedilol (Coreg) 6.25 mg QID PO Last administered on 01/11/19at 07:47; Admin Dose 6.25 MG; Start 01/10/19 at 18:00 Zolpidem Tartrate (Ambien) 5 mg HS MAY REPEAT X 1 PRN PO INSOMNIA; Start 01/10/19 at 23:20 Insulin Aspart (Novolog Insulin Pen) (Adult SC Insulin - Mild Algorithm)... AC MEALS AND BEDTIME SC Last administered on 01/11/19at 07:43; Admin Dose 3 UNIT; Start 01/11/19 at 07:25 Diagnostic Test (Pha) (Accu-Chek) 1 ea 02 XX ; Start 01/12/19 at 02:00 Assessment/Plan Hospital Course (Demo Recall) 1. Chest pain appears to be atypical but given her multiple risk factors we will schedule for Lexiscan stress test today 2. Hypertension now better controlled. Continue with the Coreg lisinopril and Norvasc 3. Diabetes: On insulin for now 4. Dyslipidemia well controlled on statin. 5. Headache/foot pain shoulder pain we will defer to primary team Thank you for this referral. We will continue follow-up with you ARTEM FONSECA MD [facility] ARTEM FONSECA MD Jan 11, 2019 08:01
[2019-01-11] MEDS ORDERED: REGADENOSON 0.4 MG/5 ML SYG ONE (08:43)
[2019-01-11] MEDS ORDERED: AMLODIPINE 10 MG TAB PO SCH (09:00)
[2019-01-11] MEDS: ASPIRIN 81 MG TAB PO SCH (10:32)
[2019-01-11] MEDS: morphine 2 MG INJ IV PRN ×2 (10:49→15:04)
[2019-01-11 11:02] VITALS: BP 148/76
[2019-01-11 11:22] VITALS: BP 154/81; PULSE 97; RESP 20
[2019-01-11] MEDS ORDERED: FEBU40TA PO (12:05)
--- NOTE | 2019-01-11 14:42 | QN ---
Documentation Comment As Physician Advisor I have reviewed the chart and have determined that as of today, this patient continues to receive medically necessary care required for the diagnosis and treatment of illness or injury. There has been no unreasonable delay in the rendering of medically necessary services, and this medically necessary care requires a length of stay expected to be greater than two midnights. Additional information gained during the stay now suggests this patient should have been classified as an inpatient at the time of admission, and I will change the status to inpatient to reflect that medical judgment. Besides the notes from the medical providers, the following information was used in this determination: Secondary cardiac workup recommended including stress testing. Comorbidities involving diabetes, hypertension, obesity, and urinary tract infection. Please call me at [phone] with questions. GOKUL GUERRERO MD Jan 11, 2019 14:42
--- NOTE | 2019-01-11 14:48 | DS ---
Date/Time of Note Date/Time of Note DATE: 01/11/19 TIME: 14:42 Discharge Summary Admission/Discharge Info Admit Date/Time Jan 09, 2019 at 21:03 Discharge Date/Time Discharge Diagnosis 1. Chest pain, resolved, negative stress thallium test 2. DM, HbA1c 7.4, resume home medications and follow up with PCP 3. HTN, stable 4. Dyslipidemia, lipitor 5. Gout, stable 6. UTI, treated 7. Hypomagnesemia, Mg given 8. Obesity, lose weight Patient Condition: Stable Procedures PROCEDURE: Lexiscan myocardial perfusion study CLINICAL INDICATION: 68 -year-old patient complaining of chest pain. TECHNIQUE: Lexiscan 0.4 mg intravenously separate acquisition gated myocardial perfusion SPECT using Tc 99m Myoview 32.8 mCi intravenously at stress and Tc-99m Myoview, 11.0 mCi intravenously at rest was performed using the rest/stress sequence. Poststress Myoview SPECT images were obtained in the supine position. COMPARISON: No prior studies. FINDINGS: Perfusion images reveal no evidence of perfusion defects. Lexiscan post stress gated SPECT images demonstrate no wall motion abno rmalities. IMPRESSION: 1. No evidence of stress-induced ischemia. 2. No wall motion abnormalities. 3. The left ventricle ejection fraction at stress is greater than 70%. A call report was made to Dr Layne on 01/11/2019 at 12 noon. RPTAT: HH .Juli Miner MD, MD Date Time Electronically viewed and signed by .Juli Miner MD, MD on 01/11/2019 12:13 .L/ Hospital Course This is a 68-year-old female with a past medical history of hypertensionm, diabetes mellitus gout, hyperlipidemia who presented to the emergency department complaining of chest pain shortness of breath as well as right-sided headache. Patient complains of headache on the right side that is been going on for 2 days. She has tried Tylenol and Motrin but has not helped. She denies any fevers. She also reported chest pain along with shortness of breath. She does not seem to have medications for her blood pressure on her med recon. Troponin negative. Echocardiography is unremarkable. Stress thallium test is negative. Chest pain is considered musculoskeletal. Follow up with PCP in office. Patient was taking different antihypertensives at home that controlled her blood pressure well at home according to the daughter. I ask the patien to resume home antihypertensives and follow up with PCP to adjust antihypertensives. Home Meds Active Scripts Acetaminophen* (Tylophen*) 500 Mg Capsule, 1 CAP PO Q6H PRN for PAIN AND OR ELEVATED TEMP, #20 CAP Prov:FINN MATOS PA-C 10/08/16 Indomethacin* (Indocin*) 25 Mg Capsule, 25 MG PO Q8 for 30 Days, CAP Prov:FINN MATOS PA-C 10/08/16 Colchicine* (Colcrys*) 0.6 Mg Tablet, 0.6 MG PO BID for 2 Days, TAB Prov:FINN MATOS PA-C 10/08/16 Reported Medications Febuxostat* (Uloric*) 40 Mg Tablet, 40 MG PO DAILY, TAB 01/11/19 [Other Meds Unknown] No Conflict Check 08/26/12 Aspirin (Aspirin) 81 Mg Tablet, 81 MG PO DAILY 08/26/12 [Simvastatin] No Conflict Check 08/26/12 [Januvia] No Conflict Check 08/26/12 Acetaminophen/Hydrocodone (Vicodin) 1 Tab Tab, 1 TAB PO PRN 08/26/12 [Glucophage] No Conflict Check 08/26/12 Follow-up Plan PCP in one week Primary Care Provider Not On Staff Doctor Pending Labs Laboratory Tests Test 01/10/19 17:39 01/10/19 21:33 01/11/19 06:27 01/11/19 07:32 Bedside 298 221 258 Glucose mg/dL (70-220) mg/dL (70-220) mg/dL (70-220) Sodium Level 138 mmol/L (135-14 4) Potassium 4.0 Level mmol/L (3.5-5. 1) Chloride Level 105 mmol/L (97-110 ) Carbon Dioxide 23 Level mmol/L (21-31) Anion Gap 10 (5-13) Blood Urea 10 Nitrogen mg/dl (7-20) Creatinine 0.60 mg/dl (0.44-1. 00) Est Glomerular > 60 Filtrat mL/min (>60) Rate mL/min Glucose Level 269 mg/dl (70-220) Calcium Level 10.4 mg/dl (8.4-10. 2) Magnesium 1.6 Level mg/dl (1.7-2.5 ) Total 0.5 Bilirubin mg/dl (0.2-1.3 ) Direct 0.00 Bilirubin mg/dl (0.00-0. 20) Indirect 0.5 Bilirubin mg/dl (0-1.1) Aspartate Amino 19 Transf (AST/SGO IU/L (15-46) T) Alanine 28 Aminotransferas IU/L (13-69) e (ALT/SGPT) Alkaline 58 Phosphatase IU/L (42-121) Total Protein 6.9 g/dl (6.1-8.1) Albumin 3.7 g/dl (3.3-4.9) Globulin 3.20 g/dl (1.3-3.2) Albumin/Globuli 1.15 n Ratio Triglycerides 82 Level mg/dl (0-149) Cholesterol 98 Level mg/dl (100-200 ) LDL 42 mg/dl Cholesterol, Calculated HDL 40 Cholesterol mg/dl (35-98) Cholesterol/HDL 2.4 RATIO Ratio Test 01/11/19 11:28 Bedside 306 Glucose mg/dL (70-220) ZEV SORTO MD Jan 11, 2019 14:48
[2019-01-11 14:56] VITALS: BP 152/85; PULSE 88; RESP 20
[2019-01-12] MEDS ORDERED: ACCUCHECK AT 2AM (Patients on SS coverage) XX SCH (02:00)
== END 2019-01-11 15:44 | disposition home or self-care (01) ==
LOC: E/R 19:37 → TEL 21:03
PROVIDERS: ADMIT Family Medicine; ATTEND Internal Medicine
DX: R07.9 Chest pain, unspecified (principal); E11.9 Type 2 diabetes mellitus without complications; I10 Essential (primary) hypertension; E78.5 Hyperlipidemia, unspecified; N39.0 Urinary tract infection, site not specified; E66.9 Obesity, unspecified; M10.9 Gout, unspecified; E83.42 Hypomagnesemia; R51 Headache; Z79.4 Long term (current) use of insulin
CPT/HCPCS: 36415; 70450; 71045; 78452; 80048; 80053; 80061; 80307; 81001; 82550; 82553; 82962; 83036; 83735; 83970; 84443; 84484; 85025; 85610; 85730; 87086; 93005; 93017; 93306; 96374; 96375; 99285; A9500; A9505; G0378; J0360; J0696; J1815; J2270; J2405; J2785; J3475; J7030